=== PATIENT | male | born 1970 | race Caucasian/White ===

== ENCOUNTER 2016-08-08 09:17 | Emergency (ER) | payer BC ==
[2016-08-08] MEDS ORDERED: Aspirin Low Dose CHEW TAB* 81 MG PO ONE (09:57)
[2016-08-08 10:18] LABS: Hematocrit 51 % (42-52); Hemoglobin 17.3 g/dl (14.0-18.0); Mean Corpuscular HGB Conc 34 g/dl (31-36); Mean Corpuscular Hemoglobin 31 pg (27-31); Mean Corpuscular Volume 91 fL (80-94); Mean Platelet Volume 8 um3 (7.4-10.4); Red Cell Distribution Width 13 % (10.5-15)
--- NOTE | 2016-08-08 10:31 | RAD ---
INDICATION: Chest pain left side. COMPARISON: Comparison is made with a prior chest x-ray study from every second 2006. TECHNIQUE: Dual-energy PA and lateral views of the chest were obtained. FINDINGS: The heart is within normal limits in size. Mediastinal and hilar contours appear within normal limits. The lungs are clear. No pleural effusion or pneumothorax is seen. IMPRESSION: NO EVIDENCE FOR ACTIVE CARDIOPULMONARY DISEASE.
[2016-08-08 10:40] LABS: Albumin 4.1 g/dL (3.2-5.2); BUN/Creatinine Ratio 14.8 (8-20); EGFR African American 131.9 (>60); EGFR Non-African American 102.6 (>60); Globulin 2.8 g/dL (2-4); Total Bilirubin 0.5 mg/dL (0.2-1.0); Total Protein 6.9 g/dL (6.4-8.9)
[2016-08-08 10:52] LABS: TSH (Thyroid Stimulating Horm) 1.01 mcIU/mL (0.34-5.60)
[2016-08-08 12:38] VITALS: BP 138/52
--- NOTE | 2016-08-08 15:07 | ED ---
Sachin Ordaz Thomas, scribed for Jairo Tucker MD on 08/08/16 at 1003 . HPI Chest Pain - HPI Summary HPI Summary: Pt is a 45 y/o male presenting to the ED with sharp, constant L-sided CP, ongoing for weeks, but worsened over past three days. Three days ago pt felt lightheaded, and today he again felt lightheaded at work, prompting an ED visit. Currently severity is 3/10 but rises to 6-7/10 at its worst. Pt describes that he occasionally feels like he lacks oxygen. Associated Sx: lightheadedness, mild diaphoresis, and nausea. Pt is a smoker, although smoking does not aggravate pain. Pt denies any PMHx, but "doesn't believe in medication or hospitals". Pert FHx: pt's brother suffered MD, currently is 56 y/o. FHx includes CA, HTN. 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 - History of Current Complaint Chief Complaint: EDChestPainROMI Time Seen by Provider: 08/08/16 09:27 Hx Obtained From: Patient, Family/Bronzer - present Onset/Duration: Started Weeks Ago, Still Present Initial Severity: Moderate Current Severity: Mild Pain Intensity: 3 - rises to 6-7/10 Pain Scale Used: 0-10 Numeric Chest Pain Location: Left Anterior - Left Anterior Superior Character: Sharp/Stabbing Aggravating Factor(s): Other: - neg: smoking Associated Signs and Symptoms: Positive: Diaphoresis, Nausea, Other: - POS: LIGHTHEADEDNESS - Risk Factors Pulmonary Embolism Risk Factors: Smoking TAD Risk Factors: Smoking AMI/ACS Risk Factors: Family History, Smoking - Allergy/Home Medications Allergies/Adverse Reactions: Allergies Allergy/AdvReac Type Severity Reaction Status Date / Time No Known Allergies Allergy Verified 04/11/14 08:17 PMH/Surg Hx/FS Hx/Imm Hx Previously Healthy: Yes Endocrine/Hematology History: Denies: Hx Diabetes, Hx Thyroid Disease Cardiovascular History: Denies: Hx Hypertension Respiratory History: Denies: Hx Asthma, Hx Chronic Obstructive Pulmonary Disease (COPD) GI History: Denies: Hx Ulcer - Surgical History Surgery Procedure, Year, and Place: Hiatal Hernia repair, Lumbar disc herniation repair x2, disc is herniated again per pt. 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 Lives: With Family Alcohol Use: Daily Alcohol Amount: 8-10 beers/day Hx Substance Use: Yes Substance Use Type: Reports: Marijuana Substance Use Comment - Amount & Last Used: daily Hx Tobacco Use: Yes Smoking Status (MU): Heavy Every Day Tobacco Smoker Amount Used/How Often: 1 1/2 PPD Review of Systems Positive: Skin Diaphoresis - mild Positive: Chest Pain Positive: Nausea Neurological: Other - POS: lightheaded All Other Systems Reviewed And Are Negative: Yes Physical Exam Triage Information Reviewed: Yes Vital Signs On Initial Exam: Initial Vitals Temp Pulse Resp BP Pulse Ox 97.6 F 65 20 160/99 100 08/08/16 09:20 08/08/16 09:20 08/08/16 09:20 08/08/16 09:20 08/08/16 09:20 Vital Signs Reviewed: Yes Skin: Positive: Warm, Skin Color Reflects Adequate Perfusion, Dry Head/Face: Positive: Normal Head/Face Inspection Eyes: Positive: Normal ENT: Positive: Normal ENT inspection Neck: Positive: Supple, Nontender Respiratory/Lung Sounds: Positive: Clear to Auscultation, Breath Sounds Present Cardiovascular: Positive: RRR, Other - POS: MILDLY REPRODUCIBLE CP IN THE L ANTERIOR SUPERIOR CHEST Abdomen Description: Positive: Nontender Bowel Sounds: Positive: Present Musculoskeletal: Positive: Normal Neurological: Positive: Normal Psychiatric: Positive: Normal, Affect/Mood Appropriate - Davy Coma Scale Coma Scale Total: 15 Diagnostics - Vital Signs Vital Signs Temp Pulse Resp BP Pulse Ox 08/08/16 09:23 97.6 F 64 20 160/99 97 08/08/16 09:20 97.6 F 65 20 160/99 100 - Laboratory Lab Results: Lab Results 08/08/16 08/08/16 08/08/16 Range/Units 10:02 10:02 10:02 WBC 8.0 (3.5-10.8) 10^3/ul RBC 5.60 H (4.0-5.4) 10^6/ul Hgb 17.3 (14.0-18.0) g/dl Hct 51 (42-52) % MCV 91 (80-94) fL MCH 31 (27-31) pg MCHC 34 (31-36) g/dl RDW 13 (10.5-15) % Plt Count 175 (150-450) 10^3/ul MPV 8 (7.4-10.4) um3 Neut % (Auto) 67.0 (38-83) % Lymph % (Auto) 23.8 L (25-47) % Ross % (Auto) 6.6 (1-9) % Eos % (Auto) 1.6 (0-6) % Baso % (Auto) 1.0 (0-2) % Absolute Neuts (auto) 5.4 (1.5-7.7) 10^3/ul Absolute Lymphs (auto) 1.9 (1.0-4.8) 10^3/ul Absolute Monos (auto) 0.5 (0-0.8) 10^3/ul Absolute Eos (auto) 0.1 (0-0.6) 10^3/ul Absolute Basos (auto) 0.1 (0-0.2) 10^3/ul Absolute Nucleated RBC 0.03 10^3/ul Nucleated RBC % 0.4 INR (Anticoag Therapy) 0.84 L (0.89-1.11) D-Dimer, Quantitative < 200 (Less Than 230) ng/mL Sodium 135 (133-145) mmol/L Potassium 4.0 (3.5-5.0) mmol/L Chloride 107 (101-111) mmol/L Carbon Dioxide 23 (22-32) mmol/L Anion Gap 5 (2-11) mmol/L BUN 12 (6-24) mg/dL Creatinine 0.81 (0.67-1.17) mg/dL Est GFR ( Amer) 131.9 (>60) Est GFR (Non-Af Amer) 102.6 (>60) BUN/Creatinine Ratio 14.8 (8-20) Glucose 106 H (70-100) mg/dL Lactic Acid (0.5-2.0) mmol/L Calcium 9.0 (8.6-10.3) mg/dL Total Bilirubin 0.50 (0.2-1.0) mg/dL AST 18 (13-39) U/L ALT 20 (7-52) U/L Alkaline Phosphatase 90 (34-104) U/L Troponin I 0.00 (<0.04) ng/mL Total Protein 6.9 (6.4-8.9) g/dL Albumin 4.1 (3.2-5.2) g/dL Globulin 2.8 (2-4) g/dL Albumin/Globulin Ratio 1.5 (1-3) TSH 1.01 (0.34-5.60) mcIU/mL 08/08/16 Range/Units 10:02 WBC (3.5-10.8) 10^3/ul RBC (4.0-5.4) 10^6/ul Hgb (14.0-18.0) g/dl Hct (42-52) % MCV (80-94) fL MCH (27-31) pg MCHC (31-36) g/dl RDW (10.5-15) % Plt Count (150-450) 10^3/ul MPV (7.4-10.4) um3 Neut % (Auto) (38-83) % Lymph % (Auto) (25-47) % Ross % (Auto) (1-9) % Eos % (Auto) (0-6) % Baso % (Auto) (0-2) % Absolute Neuts (auto) (1.5-7.7) 10^3/ul Absolute Lymphs (auto) (1.0-4.8) 10^3/ul Absolute Monos (auto) (0-0.8) 10^3/ul Absolute Eos (auto) (0-0.6) 10^3/ul Absolute Basos (auto) (0-0.2) 10^3/ul Absolute Nucleated RBC 10^3/ul Nucleated RBC % INR (Anticoag Therapy) (0.89-1.11) D-Dimer, Quantitative (Less Than 230) ng/mL Sodium (133-145) mmol/L Potassium (3.5-5.0) mmol/L Chloride (101-111) mmol/L Carbon Dioxide (22-32) mmol/L Anion Gap (2-11) mmol/L BUN (6-24) mg/dL Creatinine (0.67-1.17) mg/dL Est GFR ( Amer) (>60) Est GFR (Non-Af Amer) (>60) BUN/Creatinine Ratio (8-20) Glucose (70-100) mg/dL Lactic Acid 1.0 (0.5-2.0) mmol/L Calcium (8.6-10.3) mg/dL Total Bilirubin (0.2-1.0) mg/dL AST (13-39) U/L ALT (7-52) U/L Alkaline Phosphatase (34-104) U/L Troponin I (<0.04) ng/mL Total Protein (6.4-8.9) g/dL Albumin (3.2-5.2) g/dL Globulin (2-4) g/dL Albumin/Globulin Ratio (1-3) TSH (0.34-5.60) mcIU/mL Result Diagrams: 08/08/16 10:02 08/08/16 10:02 Lab Statement: Any lab studies that have been ordered have been reviewed, and results considered in the medical decision making process. - Radiology CXR Xray Interpretation: No Acute Changes - No evidence for active cardiopulmonary dz Radiology Interpretation Completed By: Radiologist - EKG 1 EKG Rhythm: Sinus Rhythm EKG Interpretation: LVH w/ strain Chest Pain Course/Dx - Course Course Of Treatment: Mr. Keller presented C/O left anterior sharp CP that he has had on a daily basis for months. Occasionally it makes him feel SOB and/or dizzy and lightheaded. He felt lightheaded this AM so he came to get checked out. He had mild chest wall tenderness. His d-dimer, cxr and initial trop were all normal and he refused to stay for a repeat trop. He was frustrated to not have a specific diagnosis for the pain although I reassured him that it was not immediately dangerous. - Diagnoses Provider Diagnoses: Chest wall pain Discharge - Discharge Plan Condition: Stable Disposition: HOME Patient Education Materials: Chest Wall Pain (ED) Referrals: Tomas Carlos MD [Primary Care Provider] - Additional Instructions: Follow up with primary care provider and please return to the ED if you experience new or worsening symptoms. The documentation as recorded by the Sachin goodman Thomas accurately reflects the service I personally performed and the decisions made by me, Jairo Tucker MD.
== END 2016-08-08 12:25 | disposition home or self-care (01) ==
LOC: ED 09:17
DX: R07.89 Other chest pain (principal); R11.0 Nausea; F17.210 Nicotine dependence, cigarettes, uncomplicated
CPT/HCPCS: 36415; 71020; 80053; 83605; 84443; 84484; 85025; 85379; 85610; 93005; 99283; A9270-GY

== ENCOUNTER 2017-12-20 14:39 | Emergency (ER) | payer BC ==
[2017-12-20 14:57] VITALS: BP 138/87
--- NOTE | 2017-12-20 16:00 | UC ---
Ear Complaint HPI - HPI Summary HPI Summary: 47 year old male presents with bilateral ear fullness. States for past several days he started developing some bilateral ear pain as well. States 3 days ago had an episode of vertigo when he turned his head. Denies fever, chills, nasal congestion, nasal discharge, sore throat, cough, chest pain, shortness of breath , abdominal pain, nausea, or vomiting. - History of Current Complaint Chief Complaint: UCEar Stated Complaint: EAR COMPLAINT Time Seen by Provider: 12/20/17 15:11 Hx Obtained From: Patient Onset/Duration: Gradual Onset, Lasting Weeks - 4 Severity Currently: Mild Pain Intensity: 2 Aggravating Factors: Nothing Alleviating Factors: Nothing Associated Signs/Symptoms: Positive: Hearing Loss - Allergies/Home Medications Allergies/Adverse Reactions: Allergies Allergy/AdvReac Type Severity Reaction Status Date / Time No Known Allergies Allergy Verified 04/11/14 08:17 PMH/Surg Hx/FS Hx/Imm Hx Previously Healthy: Yes - Denies significant PMH - Surgical History Surgical History: None Surgery Procedure, Year, and Place: Hiatal Hernia repair, Lumbar disc herniation repair x2, disc is herniated again per pt. - Family History Known Family History: Positive: Cardiac Disease - brother had [place], stents prior to 56 years age, Hypertension, Other - [place] - Social History Occupation: Employed Full-time Lives: With Family Alcohol Use: Daily Alcohol Amount: 8-10 beers/day Substance Use Type: Marijuana Substance Use Comment - Amount & Last Used: daily Smoking Status (MU): Heavy Every Day Tobacco Smoker Type: Cigarettes Amount Used/How Often: 1 1/2 PPD Review of Systems Constitutional: Negative Skin: Negative Eyes: Negative ENT: Ear Ache, Other - decreased hearing, vertigo Respiratory: Negative Cardiovascular: Negative Gastrointestinal: Negative Is Patient Immunocompromised?: No All Other Systems Reviewed And Are Negative: Yes Physical Exam Triage Information Reviewed: Yes Appearance: Well-Appearing, No Pain Distress, Well-Nourished Vital Signs: Initial Vital Signs Temp 99.2 F 12/20/17 14:51 Pulse 64 12/20/17 14:51 Resp 16 12/20/17 14:51 BP 138/87 12/20/17 14:51 Pulse Ox 96 12/20/17 14:51 ENT: Positive: Pharynx normal, Uvula midline, Other - Bilateral cerumen impaction. TMs not visualized.. Negative: Nasal congestion, Nasal drainage, Sinus tenderness Neck: Positive: Supple, Nontender, No Lymphadenopathy Respiratory: Positive: Lungs clear, Normal breath sounds, No respiratory distress Cardiovascular: Positive: RRR, No Murmur Neurological: Positive: Alert Skin Exam: Normal Re-Evaluation - Re-Evaluation First Eval Re-Evaluation Time: 15:50 Comment: Post ear irrigation patient reports some improvement in hearing. Bilateral external auditory canals clear. Bilateral TMs dull with erythema. Ear Complaint Course/Dx - Course Course Of Treatment: 47 year old male with 1 month history of bliateral ear fullness. Developed bilateral ear pain over past several days. Reports an episode of vertigo 3 days ago. Exam revealed bilateral cerumen impaction that was cleared with irrigation. There was bilateral TM dullness with erythema noted post irrigation. Will treat for bilateral otitis media with 10 day course of amoxicillin and OTC analgesics for pain. He is to follow up with PCP for recheck in 2 weeks. Warning symptoms reviewed. Verbalizes understanding and agrees with POC. - Differential Dx/Diagnosis Provider Diagnoses: bilateral cerumen impaction, bilateral otitis media Discharge - Sign-Out/Discharge Documenting (check all that apply): Patient Departure All imaging exams completed and their final reports reviewed: No Studies - Discharge Plan Condition: Stable Disposition: HOME Prescriptions: Amoxicillin PO (*) [Amoxicillin 875 MG (*)] 875 mg PO BID #20 tab Patient Education Materials: Cerumen Impaction (ED), Ear Infection (ED) Referrals: Tomas Carlos MD [Primary Care Provider] - Additional Instructions: The excess ear wax was successfully removed from both your ears. The ear drums were red and inflamed therefore we will treat you for an ear infection with an antibiotic. Take Amoxicillin 875 mg 1 tab twice a day for 10 days. Use over the counter pain medication such as acetaminophen (Tylenol) or ibuprofen (Advil, Motrin) according to directions as needed for pain. Your blood pressure was slightly elevated in the clinic today. It is recommended that you have this rechecked by your primary care provider. You should follow in 2 weeks to have the ears rechecked. Seek immediate medical attention if you develop fever greater than 100.5 F, have worsening pain, hearing loss, drainage or blood from your ears, persistent dizziness, or any worsening of symptoms. - Billing Disposition and Condition Condition: STABLE Disposition: Home
== END 2017-12-20 16:08 | disposition home or self-care (01) ==
LOC: UCEAST 14:39
DX: H61.23 Impacted cerumen, bilateral (principal); H66.93 Otitis media, unspecified, bilateral; F17.210 Nicotine dependence, cigarettes, uncomplicated
CPT/HCPCS: 99213; G0463

== ENCOUNTER 2018-08-07 11:14 | Observation (INO) | payer BC ==
--- NOTE | 2018-08-07 11:28 | ED ---
HPI Chest Pain - HPI Summary HPI Summary: A 47 y/o male accompanied by family presents to [facility] with a chief complaint of chest pain for 3 weeks worsening the past few days. He also c/o room spinning dizziness and dry mouth. Per triage note, the patient has SOB and rated his pain as an 8/10 in severity. He describes his pains as sharp intermittent pains. The patient reports that today about 45 minutes into work he felt dizzy and fell. He denies any Hx of DC or CVA. The patient reports drinking daily and smoking 2 ppd. His last drink was last night. He denies a Hx of DM, COPD or HTN , but his reports that the patient's blood pressure does run a little high but he does not take medicine. - History of Current Complaint Chief Complaint: EDChestPainROMI Time Seen by Provider: 08/07/18 11:19 Hx Obtained From: Patient, Family/Machinist Outside Onset/Duration: Started Weeks Ago, Still Present Timing: Intermittent Initial Severity: Moderate Current Severity: Severe Pain Intensity: 8 Pain Scale Used: 0-10 Numeric Chest Pain Location: Diffuse Chest Pain Radiates: No Character: Sharp/Stabbing Aggravating Factor(s): Nothing Alleviating Factor(s): Nothing Associated Signs and Symptoms: Positive: Dizziness, Shortness of Breath. Negative: Fever - Allergy/Home Medications Allergies/Adverse Reactions: Allergies Allergy/AdvReac Type Severity Reaction Status Date / Time No Known Allergies Allergy Verified 04/11/14 08:17 Home Medications: Home Medications NK [No Home Medications Reported] 08/07/18 [History Confirmed 08/07/18] PMH/Surg Hx/FS Hx/Imm Hx Endocrine/Hematology History: Denies: Hx Diabetes, Hx Thyroid Disease Cardiovascular History: Denies: Hx Hypertension Respiratory History: Denies: Hx Asthma, Hx Chronic Obstructive Pulmonary Disease (COPD) GI History: Denies: Hx Ulcer - Surgical History Surgery Procedure, Year, and Place: Hiatal Hernia repair, Lumbar disc herniation repair x2, disc is herniated again per pt. Infectious Disease History: No Infectious Disease History: Denies: Hx Hepatitis, Hx Human Immunodeficiency Virus (HIV), History Other Infectious Disease, Traveled Outside the [place] in Last 30 Days - Family History Known Family History: Positive: Cardiac Disease - brother had [place], stents prior to 56 years age, Hypertension, Other - [place] - Social History Alcohol Use: Daily Alcohol Amount: 8-10 beers/day Hx Substance Use: Yes Substance Use Type: Reports: Marijuana Substance Use Comment - Amount & Last Used: daily Hx Tobacco Use: Yes Smoking Status (MU): Heavy Every Day Tobacco Smoker Type: Cigarettes Amount Used/How Often: 1 / PPD Review of Systems Negative: Fever Positive: Chest Pain Positive: Shortness Of Breath Psychological: Other - positive: dizziness All Other Systems Reviewed And Are Negative: Yes Physical Exam - Summary Physical Exam Summary: GENERAL: Patient is a well-developed and nourished M who is lying comfortable in the stretcher. Patient is not in any acute respiratory distress. HEAD AND FACE: Normocephalic EYES: PERRLA, EOMI x 2. EARS: Hearing grossly intact. MOUTH: Oropharynx within normal limits. NECK: Supple, trachea is midline, no adenopathy, no JVD, no carotid bruit. CHEST: Symmetric, no tenderness at palpation LUNGS: wheezing CVS: Regular rate and rhythm, S1 and S2 present, no murmurs or gallops appreciated. ABDOMEN: Soft, non-tender. Bowel sounds are normal. No abnormal abdominal pulsations. EXTREMITIES: Full ROM in all major joints, no edema, no cyanosis or clubbing. NEURO: Alert and oriented x 3. No acute neurological deficits. Speech is normal and follows commands. SKIN: Dry and warm Neuro exam extended: Cranial nerves II-XII grossly intact, no dysmetria finger to nose, nml heel to bryan Triage Information Reviewed: Yes Vital Signs On Initial Exam: Initial Vitals Temp Pulse Resp BP Pulse Ox 97.8 F 64 16 197/113 98 08/07/18 11:15 08/07/18 11:15 08/07/18 11:15 08/07/18 11:15 08/07/18 11:15 Vital Signs Reviewed: Yes Diagnostics - Vital Signs Vital Signs Temp Pulse Resp BP Pulse Ox 08/07/18 11:15 97.8 F 64 16 197/113 98 - Laboratory Result Diagrams: 08/07/18 11:25 08/07/18 11:25 Lab Statement: Any lab studies that have been ordered have been reviewed, and results considered in the medical decision making process. - EKG 11:17 Cardiac Rate: Bradycardia - 59 bpm EKG Rhythm: Sinus Bradycardia EKG Comparison: No Significant Change Summary of EKG Findings: Sinus bradycardia at 59 bpm, ST elevation in SHAYLA pattern, ST depression in I, II and aVF but exactly similar to EKG obtained 01/2017. Re-Evaluation - Re-Evaluation First Eval Re-Evaluation Time: 12:15 Change: Improved Comment: Pt is feeling better. Chest Pain Course/Dx - Course Course Of Treatment: A 47 y/o male accompanied by family presents to [facility] with a chief complaint of chest pain for 3 weeks worsening the past few days. The physical exam revealed wheezing. EKG at 11:17 showed Sinus bradycardia at 59 bpm , ST elevation in SHAYLA pattern, ST depression in I, II and aVF but exactly similar to EKG obtained 08/08/2016. In the ED course the patient was given Antivert PO, Zofran IV and Sodium Chloride IV. Bloodwork and chemistries obtained and are WNL. The patient will be admitted. Case discussed with hospitalist, Dr. Florez. I discussed results with patient. The patient agrees with this plan - Diagnoses Provider Diagnoses: Chest pain, Dizziness - Provider Notifications Discussed Care Of Patient With: Shonda Florez Time Discussed With Above Provider: 12:25 Instructed by Provider To: Admit As Inpatient Discharge - Sign-Out/Discharge Documenting (check all that apply): Patient Departure - admit Patient Received Moderate/Deep Sedation with Procedure: No - Discharge Plan Condition: Fair Disposition: ADMITTED TO [facility] - Billing Disposition and Condition Condition: FAIR Disposition: Admitted to [facility] - Attestation Statements Document Initiated by Shashiibe: Yes Documenting Scribe: Adolfo Aguilera Provider For Whom Shashiibhernandez is Documenting (Include Credential): Yosef Rodriguez MD Scribe Attestation: Adolfo Ordaz scribed for Yosef Rodriguez MD on 08/07/18 at 1724. Scribe Documentation Reviewed: Yes Provider Attestation: The documentation as recorded by the Adolfo goodman accurately reflects the service I personally performed and the decisions made by me, Rodríguez Rodriguez MD Status of Scribe Document: Viewed
[2018-08-07] MEDS ORDERED: Ondansetron INJ* 2 MG/ML VIAL IV ONE (11:30)
[2018-08-07] MEDS ORDERED: NS 0.9% 1000 ML** 1,000 ML IV ONE (11:30)
[2018-08-07 11:31] LABS: ABS Basophils 0.1 10^3/ul (0-0.2); ABS Eosinophils 0.1 10^3/ul (0-0.6); ABS Lymphocytes 1.9 10^3/ul (1.0-4.8); ABS Monocytes 0.6 10^3/ul (0-0.8); ABS Neutrophils 5.4 10^3/ul (1.5-7.7); Eosinophil % 1.4 %; Hematocrit 52 % (42-52); Lymphocyte % 23.2 %; Mean Corpuscular HGB Conc 35 g/dL (31-36); Mean Corpuscular Hemoglobin 32 pg (27-31); Mean Corpuscular Volume 93 fL (80-94); Mean Platelet Volume 7.7 fL (7.4-10.4); Nucleated Red Blood Cells % 0.3; Platelet Count 197 10^3/uL (150-450); Red Blood Count 5.58 10^6 /uL (4.18-5.48); Red Cell Distribution Width 14 % (10-15)
[2018-08-07] MEDS ORDERED: Meclizine TAB* 12.5 MG PO ONE (11:31)
[2018-08-07 11:55] LABS: Activated Partial Thrombo Time 39.7 seconds (26.0-38.0); INR 0.92 (0.82-1.09)
[2018-08-07 12:00] LABS: Troponin I 0.01 ng/mL (<0.04)
[2018-08-07 12:10] LABS: Albumin 4.4 g/dL (3.2-5.2); Albumin/Globulin Ratio 1.7 (1-3); BUN/Creatinine Ratio 14.4 (8-20); Calcium 9.2 mg/dL (8.6-10.3); EGFR Non-African American 90.1 (>60); Globulin 2.6 g/dL (2-4); Potassium 4.3 mmol/L (3.5-5.0); Total Bilirubin 0.5 mg/dL (0.2-1.0)
[2018-08-07] MEDS ORDERED: Aspirin 81 mg CHEW TAB* 81 MG TAB.CHEW PO ONE (12:12)
[2018-08-07] MEDS ORDERED: Nitroglycerin TAB 0.4 MG* 0.4 MG TAB SL ONE (12:12)
[2018-08-07] MEDS ORDERED: Acetaminophen TAB* 325 MG PO PRN (13:49)
[2018-08-07] MEDS ORDERED: Al Hydrox/Mg Hydrox/Simet LIQ* 30 ML UDC PO PRN (13:49)
[2018-08-07] MEDS ORDERED: Temazepam CAP* 15 MG PO PRN (13:49)
[2018-08-07] MEDS ORDERED: Ondansetron INJ* 2 MG/ML VIAL IV PRN (13:49)
[2018-08-07] MEDS ORDERED: Iohexol 350* (CONTRAST) 500 ML MDV IV ONE (13:55)
[2018-08-07] MEDS ORDERED: Nicotine* 4MG (FRUIT FLAVOR) GUM PO PRN (13:57)
[2018-08-07] MEDS ORDERED: NS 0.9% 1000 ML** 1,000 ML IV SCH (14:00)
[2018-08-07] MEDS ORDERED: LORazepam TAB(*) 0.5 MG PO PRN (14:06)
[2018-08-07] MEDS: Nicotine PATCH 21 MG/24 HR* PATCH TRANSDERM SCH (14:10)
--- NOTE | 2018-08-07 16:02 | HP ---
HISTORY AND PHYSICAL: DATE OF ADMISSION: 08/07/18 PRIMARY CARE PROVIDER: None. CHIEF COMPLAINT: Chest pain and dizziness. HISTORY OF PRESENT ILLNESS: Laith Keller is a 47-year-old male with history of status post 2 back surgeries in the past and ventral hernia repair, who presented to the hospital complaining of dizziness, nausea, and chest pain. The patient stated that chest pain has been ongoing for 3 weeks. He did not change his exercise tolerance and he has no shortness of breath or pain. The patient is very vague in regards of describing his pain. He stated that the pain occurs "out of a sudden" and has no precipitating or alleviating factors. It is somewhat pleuritic and occasionally tender. 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 Today, he complains of tenderness in the left upper chest right under the left clavicle that he is indicating. He explains that the whole area feels "sore." In addition to that he stated that today in the morning, he had "2 sips of water " and he went to work. When he was about to get from his car to go to work, he started feeling dizzy and nauseated. He felt that the whole world was spinning , was unsteady on his feet. He presented to the emergency department with systolic pressures in the 180s. He received nitroglycerin, aspirin, meclizine, Zofran, and a liter of intravenous fluids and currently the dizziness resolved. The tenderness in the left chest that had been ongoing for 3 weeks is still present. The ED physician requested for the patient to be placed on observation to evaluate the patient for the possibility of angina. The patient is very reluctant to be placed on observation overnight, but he agrees "only if he has a single room." PAST MEDICAL HISTORY: 1. History of 2 spine surgeries in the past. 2. History of ventral hernia repair in the past. MEDICATIONS: None. ALLERGIES: No known drug allergies. SOCIAL HISTORY: The patient lives with his , who is his surrogate. His 's name is Faith Keller. He smokes 2 packs per day of cigarettes and he started smoking when he was 9 years old. He drinks approximately 10 beers a day but he has gone without drinking for several days in a row without any problems and no withdrawal. He denies any drug use. 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 REVIEW OF SYSTEMS: Please see the history of present illness. All the remaining 12 systems were reviewed with the patient and were otherwise negative. PHYSICAL EXAMINATION GENERAL: The patient is a pleasant 47-year-old male who is in no acute distress. Alert, awake, and oriented x3. BMI 27. VITAL SIGNS: Blood pressure of 134/88, heart rate of 59 and regular, respiratory rate 22, saturation 94% on room air, temperature 97.8. HEENT: Head atraumatic, normocephalic. Eyes: Pupils are equal and reactive to light and accommodation. Oropharynx clear. Mucosa moist. NECK: Supple. No JVD. No bruit bilaterally. RESPIRATORY: Clear to auscultation bilaterally. CARDIOVASCULAR: Regular rate and rhythm. No murmur. ABDOMEN: Soft, nontender. Bowel sounds present in all 4 quadrants. EXTREMITIES: There is no edema. +2 pulses bilaterally. No clubbing or cyanosis. NEUROLOGIC: On neuro evaluation, speech is clear. Cranial nerves II through XII are grossly intact. Motor strength is 5/5 bilaterally. The patient ambulated around the room without any evidence of ataxia. He is independent and ambulatory. PSYCHIATRY: The patient is oriented x3 with no evidence of anxiety or depression. Please note that on palpation of the patient's left upper chest, the patient has an area of palpation overlying the pectoralis muscle right underneath his left clavicle. LABORATORY DATA AND STUDIES PERFORMED DURING THE HOSPITAL STAY: Included: Sodium of 137, potassium 4.3, chloride of 104, carbon dioxide of 26, BUN 13, creatinine 0.9. Liver function tests were unremarkable. Troponin of 0.01. CBC: White blood cell count 11.3, hemoglobin of 18.0, hematocrit 52, and platelets of 197,000. Portable chest x-ray, impression: "No evidence of active cardiopulmonary disease seen on auscultation." Brain CT, impression: "No evidence of acute intracranial abnormality." The patient's EKG shows sinus bradycardia with heart rate of 59 beats per minute with nonspecific ST changes in leads V1 and V2 and elevated J point in V2 , V3. Those are comparable with changes from EKG from 2017. ASSESSMENT AND PLAN: 1. Dizziness and nausea in the patient, who has not eaten anything this morning prior to getting to work. I suspect this is related to dehydration. The patient with markedly hypertensive upon presentation. He is going to be placed on overnight observation with neuro checks. He is going to be placed on intravenous fluids. 2. The patient's left-sided chest pain is with tenderness to palpation. At this point, I will obtain a CT angiogram to evaluate for any abnormalities within the chest and to rule out pulmonary embolism. The patient is also going to be observed on telemetry monitored bed with full troponins and cardiac stress test, exercises stress test in the morning if troponins continue to be negative. 3. In regards to the patient's tobacco abuse and alcohol abuse. The patient was counseled in regards to abuse of tobacco and alcohol. He stated that he has never had been through withdrawal. We are going to observe him and treat him with Ativan as needed. I also placed him on nicotine gum and patch. 4. In regards to code status, the patient's code status is full and his surrogate is his . TIME SPENT: Approximately 65 minutes were spent on admission of this patient, more than half that time was spent [id number] with the patient during the interview and physical exam in the ED. [id number]/[facility] #: [id number] LEONEL
[2018-08-07] MEDS ORDERED: Nicotine Patch Removal NOTE PATCH OFF SCH (21:00)
[2018-08-08 06:55] LABS: HDL Cholesterol 29.9 mg/dL
[2018-08-08] MEDS ORDERED: Aspirin 81 mg CHEW TAB* 81 MG TAB.CHEW PO SCH (09:00)
[2018-08-08] MEDS: Nicotine PATCH 21 MG/24 HR* PATCH TRANSDERM SCH (09:25)
[2018-08-08] MEDS ORDERED: Regadenoson* 0.4 MG/5 ML SYRINGE ONE (11:23)
[2018-08-08 12:41] VITALS: BP 152/95
--- NOTE | 2018-08-08 14:06 | DS ---
CC: Dr. Reagan * DISCHARGE SUMMARY: DATE OF ADMISSION: 08/07/18 DATE OF DISCHARGE: 08/08/18 PRIMARY CARE PROVIDER: Dr. Reagan. CONDITION ON DISCHARGE: Stable. DISPOSITION ON DISCHARGE: To home. DISCHARGE DIAGNOSES: Chest pain likely musculoskeletal. The patient with low probability cardiac stress test documented on 08/08/18. MEDICATION ON DISCHARGE: None. LABORATORY DATA AND STUDIES PERFORMED DURING THE HOSPITAL STAY: Included: On , sodium of 137, potassium of 4.3, chloride 112, carbon dioxide 26, BUN 13 , creatinine 0.9. Liver function tests were unremarkable. On admission, troponin 0.01 to 0 throughout the hospital stay. The patient's triglycerides were 346, cholesterol total 203, LDL of 104, and HDL of 29. The patient's CT angiogram of the chest obtained on 08/07/18, impression: "No pulmonary arterial filling defects to suggest pulmonary embolism. Fatty infiltration of the liver." Nuclear portion of the patient's cardiac stress test is documented on 07/31/18, impression: "No definite fixed and reversible perfusion defects identified. Ejection fraction is 63%." At discharge, the patient is recommended to stop smoking and limit his alcohol use. The patient is recommended to follow up with his primary care provider, Dr. Reagan in approximately 1 to 2 weeks. PHYSICAL EXAM AT DISCHARGE: Unchanged from admission. HOSPITALIZATION COURSE: Laith Keller is a 47-year-old male, who presented to the hospital complaining with at least a couple weeks' sensation of pain in the chest. He was tender on palpation of the left anterior chest and it appeared to be muscle tenderness. Nevertheless, the patient has a significant smoking history and the ED physician recommended for the patient to be observed for cardiac stress test. Cardiac stress test was obtained on 08/08/18 and was low risk. The patient also had CT angiogram of the chest with no evidence of PE or other abnormalities. The patient has had problems with left shoulder for quite some time and he was recommended to follow up with an orthopedic surgeon to evaluate this further. The patient has had blood pressures ranging between 116 to 150 for the past 12 hours and when he presented to the hospital in the ED, his blood pressures were 197/113. At this point, the patient's systolic pressures are in the 140s and I recommended for the patient to continue checking his blood pressure and follow up with his primary care provider. He may need to be started on medication for his blood pressure in the near future. Please note that this is a short summary of the patient's hospitalization. Please refer to further medical records for details. TIME SPENT: Approximately 35 minutes was spent on the patient's discharge. [id number]/[facility] #: [id number] MTDD
== END 2018-08-08 13:28 | disposition home or self-care (01) ==
LOC: ED 11:14 → MEDTELE 14:42
PROVIDERS: ADMIT Internal Medicine; ATTEND Internal Medicine
DX: R07.9 Chest pain, unspecified (principal); R42 Dizziness and giddiness; R06.02 Shortness of breath; F17.210 Nicotine dependence, cigarettes, uncomplicated; Z98.890 Other specified postprocedural states; R11.0 Nausea
CPT/HCPCS: 36415; 70450; 71046; 71275; 78452; 80053; 80061; 83880; 84484; 85025; 85379; 85610; 85730; 93005; 93017; 96361; 96374; 99284; A9270-GY; A9502; G0378; J2405; J2785; Q9967

== ENCOUNTER 2018-12-03 09:56 | Emergency (ER) | payer BC ==
[2018-12-03 10:05] VITALS: BP 148/80
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
[2018-12-03] MEDS ORDERED: Bacitracin OINTMENT* 0.5% 0.5 oz TUBE TOPICAL ONE (11:05)
[2018-12-03] MEDS ORDERED: Ibuprofen TAB* 800 MG PO ONE (11:05)
[2018-12-03] MEDS ORDERED: Amoxicillin/Clavulanate TAB* 875 MG PO ONE (11:05)
== END 2018-12-03 11:29 | disposition home or self-care (01) ==
LOC: ED 09:56
DX: Z18.81 Retained glass fragments (principal); F17.210 Nicotine dependence, cigarettes, uncomplicated
CPT/HCPCS: 10120; 99282; A9270-GY

== ENCOUNTER 2019-03-20 09:35 | Emergency (ER) | payer BC ==
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
[2019-03-20 11:06] VITALS: BP 160/108
== END 2019-03-20 11:04 | disposition home or self-care (01) ==
LOC: ED 09:35
DX: L02.01 Cutaneous abscess of face (principal); F17.210 Nicotine dependence, cigarettes, uncomplicated
CPT/HCPCS: 10060; 99282

== ENCOUNTER 2022-05-19 09:27 | Inpatient (IN) ==
[2022-05-19] MEDS ORDERED: NS 0.9% 1000 ml BAG 1,000 ML IV ONE ×2 (09:35→10:57)
[2022-05-19] MEDS ORDERED: Morphine 4 MG/ML VIAL (1 ml) IV ONE ×2 (10:03→12:43)
[2022-05-19] MEDS ORDERED: Ondansetron 4 mg VIAL 2 MG/ML 2 ml VIAL IV ONE (10:03)
[2022-05-19 10:29] LABS: ABS Basophils 0.1 10^3/ul (0-0.2); ABS Eosinophils 0.2 10^3/ul (0-0.6); ABS Lymphocytes 1.9 10^3/ul (1.0-4.8); ABS Monocytes 0.6 10^3/ul (0-0.8); ABS Neutrophils 5.3 10^3/ul (1.5-7.7); Eosinophil % 1.9 %; Hematocrit 53 % (42-52); Hemoglobin 18.1 g/dL (14.0-18.0); Lymphocyte % 23.2 %; Mean Corpuscular HGB Conc 34 g/dL (31-36); Mean Corpuscular Hemoglobin 32 pg (27-31); Mean Corpuscular Volume 95 fL (80-94); Mean Platelet Volume 8.1 fL (7.4-10.4); Nucleated Red Blood Cells % 0.1; Platelet Count 200 10^3/uL (150-450); Red Blood Count 5.62 10^6 /uL (4.18-5.48); Red Cell Distribution Width 14 % (10-15)
[2022-05-19 11:11] LABS: Albumin 4.1 g/dL (3.2-5.2); CO2 Carbon Dioxide 24 mmol/L (22-32); Calcium 9.3 mg/dL (8.6-10.3); Chloride 103 mmol/L (101-111); Magnesium 2.1 mg/dL (1.9-2.7); Sodium 135 mmol/L (135-145)
[2022-05-19 11:17] LABS: ALT 30 U/L (7-52); Albumin/Globulin Ratio 1.4 (1-3); Alkaline Phosphatase 90 U/L (35-149); Blood Urea Nitrogen 10 mg/dL (6-24); C Reactive Protein 18.44 mg/L (<8.01); Creatinine, Serum 0.87 mg/dL (0.67-1.17); Glucose 91 mg/dL (70-100); Lipase 31 U/L (11.0-82.0); Total Protein 7.1 g/dL (6.4-8.9); eGFR CKD-EPI 103.8 (>60)
[2022-05-19 11:18] LABS: Anion Gap 8 mmol/L (2-11)
[2022-05-19] MEDS ORDERED: Iohexol 350 (CONTRAST) 500 ML MDV IV ONE (11:33)
[2022-05-19 13:18] LABS: Potassium Redraw 4.3 mmol/L (3.5-5.0)
[2022-05-19] MEDS ORDERED: HYDROmorphone 0.5 MG/0.5 ML SYRINGE IV SLOW PU PRN (13:50)
[2022-05-19] MEDS ORDERED: Ondansetron 4 mg VIAL 2 MG/ML 2 ml VIAL IV PRN (13:50)
[2022-05-19] MEDS ORDERED: Acetaminophen IV 1 GM/100ML 1,000 MG/100 ML BAG IV PRN (13:59)
[2022-05-19] MEDS ORDERED: NS 0.9% 1000 ml BAG 1,000 ML IV SCH (14:00)
[2022-05-19] MEDS: Cefepime 2 GM in Dextrose 2 GM/50 ML BAG IV SCH (14:32)
[2022-05-19] MEDS ORDERED: Nicotine PATCH 14 MG/24 HR PATCH TRANSDERM PRN (14:38)
[2022-05-19] MEDS ORDERED: Lorazepam PYXIS KEY PRN (14:42)
[2022-05-19] MEDS ORDERED: LORazepam 2 mg VIAL 1 ml IV PUSH SCH (15:00)
[2022-05-19] MEDS: metroNIDAZOLE IV 500 MG/100ML 500 MG/100 ML BAG IVPB SCH ×2 (15:09→21:03)
[2022-05-19] MEDS ORDERED: Nicotine GUM 4MG FRUIT FLAVOR PO PRN (17:10)
[2022-05-20] MEDS: metroNIDAZOLE IV 500 MG/100ML 500 MG/100 ML BAG IVPB SCH ×2 (02:08→08:08)
[2022-05-20] MEDS: Cefepime 2 GM in Dextrose 2 GM/50 ML BAG IV SCH (03:24)
[2022-05-20 05:53] LABS: ABS Eosinophils 0.1 10^3/ul (0-0.6); ABS Lymphocytes 1.6 10^3/ul (1.0-4.8); ABS Monocytes 0.6 10^3/ul (0-0.8); ABS Neutrophils 3.9 10^3/ul (1.5-7.7); Eosinophil % 2.4 %; Hematocrit 44 % (42-52); Hemoglobin 15.7 g/dL (14.0-18.0); Lymphocyte % 26.1 %; Mean Corpuscular HGB Conc 35 g/dL (31-36); Mean Corpuscular Hemoglobin 33 pg (27-31); Mean Corpuscular Volume 94 fL (80-94); Mean Platelet Volume 8.3 fL (7.4-10.4); Platelet Count 161 10^3/uL (150-450); Red Blood Count 4.69 10^6 /uL (4.18-5.48); Red Cell Distribution Width 14 % (10-15); White Blood Count 6.3 10^3/uL (3.5-10.8)
[2022-05-20 06:29] LABS: CRP High Sensitivity 32.98 mg/L (<2.00); Creatinine, Serum 0.89 mg/dL (0.67-1.17); Potassium 4.3 mmol/L (3.5-5.0); eGFR CKD-EPI 103.1 (>60)
[2022-05-20 10:18] VITALS: BP 139/78
== END 2022-05-20 11:18 | disposition home or self-care (01) | DRG 244 ==
LOC: ED 09:27 → EDHOLD 13:50 → MED 16:17
PROVIDERS: ADMIT Surgery Surgical Critical Care; ATTEND Surgery Surgical Critical Care

== ENCOUNTER 2022-11-10 04:25 | Inpatient (IN) ==
[2022-11-10] MEDS ORDERED: Ondansetron 4 mg VIAL 2 MG/ML 2 ml VIAL IV ONE (07:25)
[2022-11-10] MEDS ORDERED: Lactated Ringers 1000 ml BAG 1,000 ML IV ONE (07:25)
[2022-11-10 07:42] LABS: ABS Basophils 0.1 10^3/uL (0.0-0.1); ABS Eosinophils 0.1 10^3/uL (0.0-0.5); ABS Lymphocytes 1.4 10^3/uL (1.0-4.8); ABS Neutrophils 8.5 10^3/uL (1.5-7.6); ABS Nucleated RBC 0.03 10^3/ul; Eosinophil % 0.7 %; Hematocrit 48.9 % (38-53); Hemoglobin 17.2 g/dL (13.2-16.3); Lymphocyte % 12.8 %; Mean Corpuscular Hemoglobin 33.4 pg (27-33); Mean Corpuscular Hgb Conc 35.1 g/dL (31-36); Mean Corpuscular Volume 95.1 fL (80-97); Nucleated Red Blood Cells % 0.3 /100 WBC (0.0-0.4); Platelet Count 204 10^3/uL (150-450); Red Blood Count 5.14 10^6/uL (4.06-5.63); Red Cell Distribution Width 13.8 % (12-17); White Blood Count 11.2 10^3/uL (3.6-10.2)
[2022-11-10 08:01] LABS: Albumin 3.9 g/dL (3.2-5.2); CO2 Carbon Dioxide 25 mmol/L (22-32); Calcium 8.5 mg/dL (8.6-10.3); Chloride 98 mmol/L (101-111); Sodium 131 mmol/L (135-145)
[2022-11-10 08:04] LABS: Anion Gap 8 mmol/L (2-16)
[2022-11-10 08:08] LABS: ALT 19 U/L (7-52); Albumin/Globulin Ratio 1.1 (1-3); Alkaline Phosphatase 77 U/L (35-149); Blood Urea Nitrogen 9 mg/dL (6-24); Creatinine, Serum 0.85 mg/dL (0.67-1.17); Globulin 3.7 g/dL (2-4); Glucose 107 mg/dL (70-100); Lipase 13 U/L (11.0-82.0); Total Protein 7.6 g/dL (6.4-8.9); eGFR CKD-EPI 103.9 (>60)
[2022-11-10 08:23] LABS: INR 1.14 (0.83-1.13)
[2022-11-10] MEDS ORDERED: Iohexol 300 (CONTRAST) 10 ML SDV IV ONE (08:37)
[2022-11-10 08:52] LABS: Urine Appearance Clear; Urine Bilirubin Negative (Negative); Urine Blood 1+ (Negative); Urine Color Amber; Urine Glucose Negative (Negative); Urine Ketones Trace (Negative); Urine Nitrite Negative (Negative); Urine Protein 2+(100 mg/dL) (Negative); Urine Specific Gravity 1.024 (1.002-1.030); Urine Urobilinogen Negative (Negative)
[2022-11-10 09:05] LABS: Urine Bacteria Absent (Absent); Urine Red Blood Cell Trace(0-2/hpf) (Absent); Urine White Blood Cell Trace(0-5/hpf) (Absent)
[2022-11-10 09:11] LABS: Potassium Redraw 3.9 mmol/L (3.5-5.0)
[2022-11-10] MEDS ORDERED: Acetaminophen IV 1 GM/100ML 1,000 MG/100 ML BAG IV PRN (11:03)
[2022-11-10] MEDS ORDERED: Ondansetron 4 mg VIAL 2 MG/ML 2 ml VIAL IV PRN (11:08)
[2022-11-10] MEDS ORDERED: Piperacillin/Tazobac 3.375 BAG 3.375 GM/100 ML BAG IV SCH (12:00)
[2022-11-10] MEDS: Nicotine PATCH 14 MG/24 HR PATCH TRANSDERM SCH (13:07)
[2022-11-10] MEDS: Famotidine IV 10 MG/ML 2 ml VIAL (20 mg) IV SLOW PU SCH ×2 (13:07→20:52)
[2022-11-10] MEDS: D5W NS 0.9% 20Meq KCL 1000 ml 1,000 ML IV SCH ×2 (13:11→21:31)
[2022-11-10] MEDS: Piperacillin/Tazobac 3.375 BAG 3.375 GM/100 ML BAG IV SCH (20:51)
[2022-11-11] MEDS: Piperacillin/Tazobac 3.375 BAG 3.375 GM/100 ML BAG IV SCH ×2 (04:15→13:09)
[2022-11-11] MEDS: D5W NS 0.9% 20Meq KCL 1000 ml 1,000 ML IV SCH (05:42)
[2022-11-11 06:09] LABS: ABS Eosinophils 0.1 10^3/uL (0.0-0.5); ABS Lymphocytes 1.3 10^3/uL (1.0-4.8); ABS Monocytes 0.9 10^3/uL (0.0-1.1); ABS Neutrophils 6.2 10^3/uL (1.5-7.6); Eosinophil % 1.5 %; Lymphocyte % 15.2 %; Mean Corpuscular Hemoglobin 33.2 pg (27-33); Mean Corpuscular Volume 94.9 fL (80-97); Mean Platelet Volume 8.3 fL (7.5-11.2); Platelet Count 195 10^3/uL (150-450); Red Blood Count 4.53 10^6/uL (4.06-5.63); Red Cell Distribution Width 13.9 % (12-17); White Blood Count 8.6 10^3/uL (3.6-10.2)
[2022-11-11 06:28] LABS: Calcium 7.6 mg/dL (8.6-10.3); Creatinine, Serum 0.82 mg/dL (0.67-1.17); Potassium 4.1 mmol/L (3.5-5.0)
[2022-11-11] MEDS: Nicotine PATCH 14 MG/24 HR PATCH TRANSDERM SCH ×2 (08:12→11:35)
[2022-11-11] MEDS: Famotidine IV 10 MG/ML 2 ml VIAL (20 mg) IV SLOW PU SCH (08:12)
[2022-11-11 10:26] VITALS: BP 146/86
== END 2022-11-11 16:45 | disposition home or self-care (01) | DRG 244 ==
LOC: ED 04:25 → EDHOLD 10:38 → MEDTELE 14:45
PROVIDERS: ADMIT Surgery; ATTEND Surgery

== ENCOUNTER 2022-11-23 17:48 | Inpatient (IN) ==
[2022-11-23] MEDS ORDERED: Ondansetron ODT 4 mg TAB 4 MG TAB PO ONE (19:20)
[2022-11-23] MEDS ORDERED: Morphine 4 MG/ML VIAL (1 ml) IV ONE ×2 (20:46→23:51)
[2022-11-23] MEDS ORDERED: Lactated Ringers 1000 ml BAG 1,000 ML IV ONE (20:47)
[2022-11-23 21:17] LABS: ABS Basophils 0.1 10^3/uL (0.0-0.1); ABS Eosinophils 0.1 10^3/uL (0.0-0.5); ABS Lymphocytes 1.8 10^3/uL (1.0-4.8); ABS Monocytes 0.7 10^3/uL (0.0-1.1); ABS Neutrophils 10.2 10^3/uL (1.5-7.6); ABS Nucleated RBC 0.02 10^3/ul; Eosinophil % 0.8 %; Hematocrit 45.7 % (38-53); Lymphocyte % 13.7 %; Mean Corpuscular Hemoglobin 32.6 pg (27-33); Mean Corpuscular Volume 93.3 fL (80-97); Nucleated Red Blood Cells % 0.1 /100 WBC (0.0-0.4); Platelet Count 287 10^3/uL (150-450); Red Cell Distribution Width 14.4 % (12-17); White Blood Count 12.9 10^3/uL (3.6-10.2)
[2022-11-23 21:36] LABS: Albumin 3.9 g/dL (3.2-5.2); Calcium 9.2 mg/dL (8.6-10.3); Potassium 3.8 mmol/L (3.5-5.0); Total Bilirubin 0.4 mg/dL (0.2-1.0)
[2022-11-23 21:42] LABS: Albumin/Globulin Ratio 1.3 (1-3); C Reactive Protein 17.29 mg/L (<8.01); Creatinine, Serum 0.76 mg/dL (0.67-1.17); Globulin 3.1 g/dL (2-4); eGFR CKD-EPI 107.5 (>60)
[2022-11-23] MEDS ORDERED: Iohexol 300 (CONTRAST) 10 ML SDV IV ONE (21:55)
[2022-11-23 22:36] LABS: Urine Appearance Clear; Urine Bilirubin Negative (Negative); Urine Blood Negative (Negative); Urine Color Yellow; Urine Glucose Negative (Negative); Urine Ketones Negative (Negative); Urine Nitrite Negative (Negative); Urine Protein Negative (Negative); Urine Specific Gravity 1.019 (1.002-1.030); Urine Urobilinogen Negative (Negative)
[2022-11-24] MEDS ORDERED: HYDROmorphone 1 MG/1 ML SYRINGE IV SLOW PU PRN (00:50)
[2022-11-24] MEDS: D5W 1/2 NS 40 Meq KCL 1000 ml 1,000 ML IV SCH ×2 (02:16→19:10)
[2022-11-24] MEDS: Piperacillin/Tazobac 3.375 BAG 3.375 GM/100 ML BAG IV SCH ×3 (04:57→22:00)
[2022-11-24] MEDS ORDERED: HYDROmorphone 1 MG/1 ML SYRINGE IV PRN (09:47)
[2022-11-24] MEDS ORDERED: Prochlorperazine 5 mg/ml 2 ml VIAL (10 mg) IV PRN (09:47)
[2022-11-24] MEDS ORDERED: Buffered Lidocaine 1% SYRIN 1 ml INTRADERM ONE (09:47)
[2022-11-24] MEDS ORDERED: Naloxone 0.4 mg VIAL 0.4 mg/ml 1 ml VIAL IV PRN (09:47)
[2022-11-24] MEDS ORDERED: Lactated Ringers 1000 ml BAG 1,000 ML IV SCH (10:00)
[2022-11-24] MEDS ORDERED: Rocuronium 50 mg VIAL 10 mg/ml 5 ml VIAL (50 mg) ONE ×3 (10:29→12:51)
[2022-11-24] MEDS ORDERED: Midazolam 2 mg/2 ml VIAL 1 mg/ml 2 ml VIAL (2 mg) ONE (10:30)
[2022-11-24] MEDS ORDERED: Lidocaine 2% PF 5 ML VIAL ONE (10:30)
[2022-11-24] MEDS ORDERED: Propofol 10 MG/ML 20 ML BTL ONE (10:30)
[2022-11-24] MEDS ORDERED: fentaNYL 250 mcg/5 ml 50 MCG/ML 5 ml VIAL (250 MCG) ONE (10:30)
[2022-11-24] MEDS ORDERED: Bupivacaine 0.5% 50 ML MDV VIAL ONE (10:38)
[2022-11-24] MEDS ORDERED: Acetaminophen IV 1 GM/100ML 1,000 MG/100 ML BAG IV ONE (11:14)
[2022-11-24] MEDS ORDERED: Dexamethasone IV 4 MG/ML VIAL 1 ml VIAL ONE (11:17)
[2022-11-24] MEDS ORDERED: HYDROmorphone 0.5 MG/0.5 ML SYRINGE ONE ×3 (11:58→14:39)
[2022-11-24] MEDS ORDERED: Bupivacaine 0.25% SDV 30 ML ONE (12:11)
[2022-11-24] MEDS ORDERED: Metoprolol Tartrate 5 mg VIAL 5 ml VIAL (1 mg/ml) ONE (12:13)
[2022-11-24] MEDS ORDERED: KETAMINE HCL 10 MG/ML 20 ml VIAL (200 MG) ONE (13:06)
[2022-11-24] MEDS ORDERED: fentaNYL 100 mcg/2 ml 50 MCG/ML VIAL ONE (13:18)
[2022-11-24] MEDS ORDERED: Phenylephrine 40 mcg/mL 10mL (400mcg) SYRINGE ONE (14:11)
[2022-11-24] MEDS ORDERED: Benzocaine/Butamben/Tetracain (CETACAINE - SINGLE USE) 5 gm TOPICAL ONE (14:16)
[2022-11-24] MEDS ORDERED: Ondansetron 4 mg VIAL 2 MG/ML 2 ml VIAL ONE (14:37)
[2022-11-24] MEDS ORDERED: ROPIVACAINE 5 MG/ML 30 ML BTL (0.5%) ONE ×2 (14:44→14:50)
[2022-11-24] MEDS ORDERED: Nicotine PATCH 7 MG/24 HR PATCH TRANSDERM PRN (15:53)
[2022-11-24] MEDS ORDERED: hydrALAZINE 20 mg/ml 1 ML Vial IV IV SLOW PU PRN (16:40)
[2022-11-24] MEDS ORDERED: hydrALAZINE 20 mg/ml 1 ML Vial IV ONE (16:45)
[2022-11-24] MEDS ORDERED: Prochlorperazine 5 mg/ml 2 ml VIAL (10 mg) ONE (17:07)
[2022-11-24] MEDS: Acetaminophen IV 1 GM/100ML 1,000 MG/100 ML BAG IV SCH (22:16)
[2022-11-24] MEDS: Ondansetron 4 mg VIAL 2 MG/ML 2 ml VIAL IV PRN (22:47)
[2022-11-25] MEDS: Acetaminophen IV 1 GM/100ML 1,000 MG/100 ML BAG IV SCH ×3 (05:53→22:56)
[2022-11-25 06:15] LABS: ABS Lymphocytes 1.5 10^3/uL (1.0-4.8); ABS Monocytes 0.9 10^3/uL (0.0-1.1); ABS Neutrophils 8.5 10^3/uL (1.5-7.6); ABS Nucleated RBC 0.02 10^3/ul; Eosinophil % 0.4 %; Hematocrit 41.6 % (38-53); Hemoglobin 14.6 g/dL (13.2-16.3); Lymphocyte % 13.9 %; Mean Corpuscular Hemoglobin 32.7 pg (27-33); Mean Corpuscular Hgb Conc 34.9 g/dL (31-36); Mean Corpuscular Volume 93.5 fL (80-97); Mean Platelet Volume 8.5 fL (7.5-11.2); Nucleated Red Blood Cells % 0.1 /100 WBC (0.0-0.4); Platelet Count 263 10^3/uL (150-450); Red Blood Count 4.45 10^6/uL (4.06-5.63); Red Cell Distribution Width 14.2 % (12-17)
[2022-11-25] MEDS: Piperacillin/Tazobac 3.375 BAG 3.375 GM/100 ML BAG IV SCH ×3 (06:15→23:11)
[2022-11-25 06:29] LABS: Calcium 8.6 mg/dL (8.6-10.3); Creatinine, Serum 0.95 mg/dL (0.67-1.17); Magnesium 1.6 mg/dL (1.9-2.7); Potassium 4.2 mmol/L (3.5-5.0); eGFR CKD-EPI 95.7 (>60)
[2022-11-25] MEDS ORDERED: Magnesium Sulfate 2 gm BAG 2 GM/50 ML BAG IVPB ONE (08:54)
[2022-11-25] MEDS: Enoxaparin 40 MG/0.4 ML SYR SUBCUT SCH (09:59)
[2022-11-25] MEDS: HYDROmorphone 0.5 MG/0.5 ML SYRINGE IV SLOW PU PRN ×4 (10:02→23:10)
[2022-11-26] MEDS: HYDROmorphone 0.5 MG/0.5 ML SYRINGE IV SLOW PU PRN ×5 (02:25→21:12)
[2022-11-26] MEDS: Ondansetron 4 mg VIAL 2 MG/ML 2 ml VIAL IV PRN ×2 (02:25→21:59)
[2022-11-26 06:06] LABS: Calcium 8.7 mg/dL (8.6-10.3); Creatinine, Serum 0.94 mg/dL (0.67-1.17); Potassium 4.3 mmol/L (3.5-5.0); eGFR CKD-EPI 96.9 (>60)
[2022-11-26] MEDS: Acetaminophen IV 1 GM/100ML 1,000 MG/100 ML BAG IV SCH ×2 (06:30→14:24)
[2022-11-26] MEDS: Piperacillin/Tazobac 3.375 BAG 3.375 GM/100 ML BAG IV SCH ×3 (06:54→22:54)
[2022-11-26] MEDS: Enoxaparin 40 MG/0.4 ML SYR SUBCUT SCH (07:56)
[2022-11-26] MEDS: Calcium Carb (TUMS) 500 mg CHEW TAB PO PRN ×2 (10:25→21:12)
[2022-11-27] MEDS: Ondansetron 4 mg VIAL 2 MG/ML 2 ml VIAL IV PRN ×3 (01:45→16:30)
[2022-11-27] MEDS: Metoclopramide 5 MG/ML VIAL (10 mg) IV PRN ×4 (02:28→20:05)
[2022-11-27] MEDS: HYDROmorphone 0.5 MG/0.5 ML SYRINGE IV SLOW PU PRN ×6 (02:56→20:06)
[2022-11-27] MEDS: Piperacillin/Tazobac 3.375 BAG 3.375 GM/100 ML BAG IV SCH ×3 (05:32→21:59)
[2022-11-27] MEDS: Enoxaparin 40 MG/0.4 ML SYR SUBCUT SCH (08:43)
[2022-11-27] MEDS: D5W 1/2 NS KCl 20 meq 1000 ml 1,000 ML IV SCH (13:05)
[2022-11-27] MEDS: Pantoprazole VIAL 40 MG VIAL IV SCH (13:11)
[2022-11-27] MEDS: Calcium Carb (TUMS) 500 mg CHEW TAB PO PRN (20:05)
[2022-11-27] MEDS: Prochlorperazine 5 mg/ml 2 ml VIAL (10 mg) IV PRN (20:05)
[2022-11-28] MEDS: HYDROmorphone 0.5 MG/0.5 ML SYRINGE IV SLOW PU PRN ×3 (00:37→07:44)
[2022-11-28] MEDS: Ondansetron 4 mg VIAL 2 MG/ML 2 ml VIAL IV PRN (00:37)
[2022-11-28] MEDS: Prochlorperazine 5 mg/ml 2 ml VIAL (10 mg) IV PRN (04:36)
[2022-11-28] MEDS: Metoclopramide 5 MG/ML VIAL (10 mg) IV PRN (04:36)
[2022-11-28] MEDS: Piperacillin/Tazobac 3.375 BAG 3.375 GM/100 ML BAG IV SCH ×3 (05:59→21:45)
[2022-11-28 06:13] LABS: Creatinine, Serum 0.8 mg/dL (0.67-1.17); Magnesium 1.8 mg/dL (1.9-2.7); Phosphorus 4.1 mg/dL (2.5-5.0); Potassium 3.9 mmol/L (3.5-5.0); eGFR CKD-EPI 105.8 (>60)
[2022-11-28] MEDS: Enoxaparin 40 MG/0.4 ML SYR SUBCUT SCH (07:58)
[2022-11-28] MEDS: Pantoprazole VIAL 40 MG VIAL IV SCH (12:58)
[2022-11-28] MEDS: D5W 1/2 NS KCl 20 meq 1000 ml 1,000 ML IV SCH (14:21)
[2022-11-29] MEDS: D5W 1/2 NS KCl 20 meq 1000 ml 1,000 ML IV SCH (02:34)
[2022-11-29] MEDS: Piperacillin/Tazobac 3.375 BAG 3.375 GM/100 ML BAG IV SCH ×2 (06:15→14:23)
[2022-11-29] MEDS ORDERED: HYDROcodone/ACETAMIN 5/325 mg TAB PO PRN (08:36)
[2022-11-29] MEDS: Enoxaparin 40 MG/0.4 ML SYR SUBCUT SCH (09:32)
[2022-11-29] MEDS: Pantoprazole VIAL 40 MG VIAL IV SCH (13:47)
[2022-11-29] MEDS ORDERED: Lactated Ringers 1000 ml BAG 1,000 ML IV SCH (16:00)
[2022-11-30] MEDS: HYDROmorphone 0.5 MG/0.5 ML SYRINGE IV SLOW PU PRN (02:06)
[2022-11-30] MEDS: Ondansetron 4 mg VIAL 2 MG/ML 2 ml VIAL IV PRN (06:13)
[2022-11-30 06:54] LABS: ABS Basophils 0.1 10^3/uL (0.0-0.1); ABS Eosinophils 0.3 10^3/uL (0.0-0.5); ABS Lymphocytes 1.4 10^3/uL (1.0-4.8); ABS Monocytes 0.6 10^3/uL (0.0-1.1); ABS Neutrophils 4.5 10^3/uL (1.5-7.6); ABS Nucleated RBC 0.01 10^3/ul; Eosinophil % 4.8 %; Hematocrit 41.2 % (38-53); Hemoglobin 14.2 g/dL (13.2-16.3); Lymphocyte % 20.4 %; Mean Corpuscular Hemoglobin 31.8 pg (27-33); Mean Corpuscular Hgb Conc 34.4 g/dL (31-36); Mean Corpuscular Volume 92.4 fL (80-97); Mean Platelet Volume 8.3 fL (7.5-11.2); Nucleated Red Blood Cells % 0.1 /100 WBC (0.0-0.4); Platelet Count 340 10^3/uL (150-450); Red Blood Count 4.46 10^6/uL (4.06-5.63); White Blood Count 6.9 10^3/uL (3.6-10.2)
[2022-11-30 07:12] LABS: Calcium 9.2 mg/dL (8.6-10.3); Creatinine, Serum 0.72 mg/dL (0.67-1.17); Magnesium 1.9 mg/dL (1.9-2.7); Potassium 3.9 mmol/L (3.5-5.0); eGFR CKD-EPI 109.2 (>60)
[2022-11-30] MEDS: Enoxaparin 40 MG/0.4 ML SYR SUBCUT SCH (09:09)
[2022-11-30] MEDS: Pantoprazole VIAL 40 MG VIAL IV SCH (12:48)
[2022-11-30 14:04] VITALS: BP 143/96
== END 2022-11-30 15:25 | disposition home or self-care (01) | DRG 221 ==
LOC: ED 17:48 → EDHOLD 11-24 00:50 → SSU 11-24 00:50 → INTOOBSV 11-24 00:50 → OBSVTOIN 11-24 00:50 → MEDTELE 11-24 07:46 → EDHOLD 11-24 09:38 → AA 11-24 09:40 → SSU 11-24 18:03
PROVIDERS: ADMIT Surgery; ATTEND Surgery

== ENCOUNTER 2023-02-23 06:06 | Observation (INO) ==
[~2023-02-23 06:06] MED LIST: Buffered Lidocaine 1% SYRIN 1 ml INTRADERM ONE; Lactated Ringers 1000 ml BAG 1,000 ML IV SCH; Scopolamine 1 mg/72hr PATCH TRANSDERM ONE
[2023-02-23] MEDS ORDERED: Scopolamine 1 mg/72hr PATCH ONE (06:35)
[2023-02-23] MEDS ORDERED: ceFOXitin 2 GM IVPREMIX 2 GM/50 ML BAG ONE (06:36)
[2023-02-23] MEDS ORDERED: Lidocaine 2% PF 5 ML VIAL ONE (07:10)
[2023-02-23] MEDS ORDERED: Glycopyrrolate IV 0.2 MG/ML 1 ML VIAL ONE (07:10)
[2023-02-23] MEDS ORDERED: Dexamethasone IV 4 MG/ML VIAL 1 ml VIAL ONE (07:10)
[2023-02-23] MEDS ORDERED: Propofol 10 MG/ML 20 ML BTL ONE ×2 (07:10→08:51)
[2023-02-23] MEDS ORDERED: fentaNYL 100 mcg/2 ml 50 MCG/ML VIAL ONE ×4 (07:10→08:52)
[2023-02-23] MEDS ORDERED: Ondansetron 4 mg VIAL 2 MG/ML 2 ml VIAL ONE (07:10)
[2023-02-23] MEDS ORDERED: Rocuronium 50 mg VIAL 10 mg/ml 5 ml VIAL (50 mg) ONE (07:11)
[2023-02-23 07:15] LABS: Rapid COVID-19 Molecular Undetected (Undetected)
[2023-02-23] MEDS ORDERED: Bupivacaine 0.5% 50 ML MDV VIAL ONE (07:50)
[2023-02-23] MEDS ORDERED: HYDROmorphone 0.5 MG/0.5 ML SYRINGE ONE (09:09)
[2023-02-23] MEDS ORDERED: Ondansetron 4 mg VIAL 2 MG/ML 2 ml VIAL IV PRN (09:51)
[2023-02-23] MEDS ORDERED: HYDROmorphone 0.5 MG/0.5 ML SYRINGE IV SLOW PU PRN (09:57)
[2023-02-23] MEDS ORDERED: Enoxaparin 40 MG/0.4 ML SYR SUBCUT SCH (10:00)
[2023-02-23] MEDS: Nicotine PATCH 21 MG/24 HR PATCH TRANSDERM SCH (17:26)
[2023-02-23] MEDS: Enoxaparin 40 MG/0.4 ML SYR SUBCUT SCH (20:33)
[2023-02-24] MEDS: Nicotine PATCH 21 MG/24 HR PATCH TRANSDERM SCH (08:33)
[2023-02-24] MEDS: Enoxaparin 40 MG/0.4 ML SYR SUBCUT SCH (21:32)
[2023-02-25] MEDS: Nicotine PATCH 21 MG/24 HR PATCH TRANSDERM SCH (08:46)
[2023-02-25 10:33] VITALS: BP 112/79
== END 2023-02-25 10:00 | disposition home or self-care (01) ==
LOC: OR 06:06 → SSU 06:06
PROVIDERS: ADMIT Surgery Surgical Critical Care; ATTEND Surgery Surgical Critical Care